=== PATIENT | female | born 1955 | race Caucasian/White ===

== ENCOUNTER 2017-08-24 16:59 | Emergency (ER) | payer SELFPAY ==
[~2017-08-24] VITALS: Ht 147.3 cm; Wt 91.0 kg
[~2017-08-24 16:59] MED LIST: ERYT500 PO; GUAI100S6 PO; Z.0.NO CURRENT MEDS
[2017-08-24 17:02] VITALS: BP 159/91; PULSE 87; RESP 18; TEMP 99.1; O2SAT 98
--- NOTE | 2017-08-24 19:56 | PD ---
HPI Chief Complaint: Back/ Neck Pain or Injury Time Seen by Provider: 18:15 Travel History International Travel<30 days: No Contact w/Intl Traveler<30days: No Traveled to known affect area: No History of Present Illness HPI 61-year-old female complains of neck pain, upper back pain and low back pain. Patient states that the pain started while she was driving today. Patient stated pain is muscular spasm type of pain, started at the neck area with radiation to left shoulder left arm left anterior chest wall and upper back and low back. Patient denies any injury. Patient denies any headache. Patient denies any visual change. Patient denies any shortness of breath. Patient has history of asthma and has chronic cough. Patient denies any fever chills. Patient denies abdominal pain. Patient denies any focal weakness or numbness of the extremity. Patient states that she took Naprosyn without much relief of the pain. On a scale of 1-10 the pain is a 7. PFSH Past Medical History Medical other: Yes Tubal Ligation: Yes Past Surgical History Other Surgery: Yes (states she had 12 inchs colon removed ) Social History Alcohol Use: No Tobacco Use: No Substance Use: No Allergies-Medications (Allergen,Severity, Reaction): Coded Allergies: penicillin G (Unverified Allergy, Severe, HIVES SOB, 08/24/17) Reported Meds & Prescriptions Reported Meds & Active Scripts Active Larry-Tab (Erythromycin) 500 Mg Tabec 500 Mg PO QID Robitussin Ac (Guaifenesin/Codeine Phosphate) Syrp 5-10 Ml PO Q6HPRN Reported No Current Meds (Miscellaneous Medication) Misc Review of Systems General / Constitutional: No: Fever Eyes: No: Visual changes HENT: Positive: Neck Pain, No: Headaches Cardiovascular: No: Chest Pain or Discomfort Respiratory: No: Shortness of Breath Gastrointestinal: No: Abdominal Pain Genitourinary: No: Dysuria Musculoskeletal: Positive: Pain Skin: No Rash Neurologic: No: Weakness Psychiatric: No: Depression Endocrine: No: Polydipsia Hematologic/Lymphatic: No: Easy Bruising Physical Exam Narrative GENERAL: Well-nourished, well-developed patient. SKIN: Focused skin assessment warm/dry. HEAD: Normocephalic. EYES: No scleral icterus. No injection or drainage. NECK: Supple, trachea midline. No JVD or lymphadenopathy. Mild to moderate tenderness on palpation left paraspinal area cervical spine. Mild to moderate tenderness on palpation left shoulder pad area. No shoulder joint tenderness. Full range of motion the left shoulder joint. CARDIOVASCULAR: Regular rate and rhythm without murmurs, gallops, or rubs. RESPIRATORY: Breath sounds equal bilaterally. No accessory muscle use. GASTROINTESTINAL: Abdomen soft, non-tender, nondistended. MUSCULOSKELETAL: No cyanosis, or edema. BACK: Patient has mild to moderate tenderness in palpation of thoracic lumbar area in the left side, without obvious deformity. No CVA tenderness. Negative straight leg raising. Neurologic exam normal. Data Data Last Documented VS Vital Signs Date Time Temp Pulse Resp B/P (MAP) Pulse Ox O2 Delivery O2 Flow Rate FiO2 08/24/17 17:02 99.1 87 18 159/91 (113) 98 Orders Orders Spine, Cervical - Ltd (Ap&Lat) (08/24/17 19:35) Spine, Thoracic-Ap/Lat/Sw(3vw) (08/24/17 19:35) Spine, Lumbar - Ltd (Ap & Lat) (08/24/17 19:35) Ed Discharge Order (08/24/17 20:55) [facility] Medical Decision Making Medical Screen Exam Complete: Yes Emergency Medical Condition: Yes Interpretation(s) Last Impressions Thoracic Spine X-Ray 08/24/171934 Signed Impressions: CONCLUSION: No acute findings. Mild degenerative disc disease. Lumbar Spine X-Ray 08/24/171934 Signed Impressions: CONCLUSION: Mild degenerative disc disease. No acute findings. Cervical Spine X-Ray 08/24/171934 Signed Impressions: CONCLUSION: No acute findings. Differential Diagnosis Differential diagnosis including muscle spasm, fracture, HNP. Narrative Course 61-year-old female with neck pain, upper back pain, low back pain. Nontraumatic. Diagnosis Primary Impression: Cervical strain, acute Qualified Codes: S16.1XXA - Strain of muscle, fascia and tendon at neck level , initial encounter Additional Impressions: Acute thoracic myofascial strain Qualified Codes: S29.019A - Strain of muscle and tendon of unspecified wall of thorax, initial encounter Acute lumbar myofascial strain Qualified Codes: S39.012A - Strain of muscle, fascia and tendon of lower back , initial encounter Patient Instructions: General Instructions Additional Instructions: Take medications as needed for pain. Follow-up with personal physician. Med/Other Pt SpecificInfo: Prescription(s) given Scripts Methocarbamol (Robaxin) 750 Mg Tab 750 MG PO QID for Muscle Spasm, #40 TAB 0 Refills Prov: Kye Roy MD 08/24/17 Albuterol 18 GM Inh (Ventolin Hfa 18 GM Inh) 90 Mcg/Act Aer 2 PUFF INH Q4-6H Y for SHORTNESS OF BREATH, #1 INHALER 0 Refills Prov: Kye Roy MD 08/24/17 Disposition: 01 DISCHARGE HOME Condition: Stable Kye Roy MD Aug 24, 2017 19:56
--- NOTE | 2017-08-24 20:12 | RADRPT ---
EXAM DATE: 08/24/2017 8:08 PM EDT AGE/SEX: 61 years / Female INDICATIONS: Left sided neck pain. No known trauma. CLINICAL DATA: This is the patient's initial encounter. Patient reports that signs and symptoms have been present for 1 day and indicates a pain score of 10/10. MEDICAL/SURGICAL HISTORY: None. Tubal ligation. Colon resection. COMPARISON: No prior exams available for comparison. FINDINGS: The vertebral bodies are in normal alignment without evidence of compression deformity Bone density is normal for age. Soft tissues are grossly intact. CONCLUSION: No acute findings. Electronically signed by: Leland Hannon MD 08/24/2017 8:10 PM EDT
--- NOTE | 2017-08-24 20:38 | RADRPT ---
EXAM DATE: 08/24/2017 8:13 PM EDT AGE/SEX: 61 years / Female INDICATIONS: Left sided upper back pain. No known trauma. CLINICAL DATA: This is the patient's initial encounter. Patient reports that signs and symptoms have been present for 1 day and indicates a pain score of 10/10. MEDICAL/SURGICAL HISTORY: None. Tubal ligation. Colon resection. COMPARISON: No prior exams available for comparison. FINDINGS: The vertebral bodies are in normal alignment without evidence of compression deformity Bone density is normal for age. Soft tissues are grossly intact. CONCLUSION: No acute findings. Mild degenerative disc disease. Electronically signed by: Leland Hannon MD 08/24/2017 8:37 PM EDT
--- NOTE | 2017-08-24 20:39 | RADRPT ---
EXAM DATE: 08/24/2017 8:11 PM EDT AGE/SEX: 61 years / Female INDICATIONS: Left sided back pain. No known trauma. CLINICAL DATA: This is the patient's initial encounter. Patient reports that signs and symptoms have been present for 1 day and indicates a pain score of 10/10. MEDICAL/SURGICAL HISTORY: None. Tubal ligation. Colon resection. COMPARISON: No prior exams available for comparison. FINDINGS: The vertebral bodies are in normal alignment without evidence of compression deformity Bone density is normal for age. Soft tissues are grossly intact. CONCLUSION: Mild degenerative disc disease. No acute findings. Electronically signed by: Leland Hannon MD 08/24/2017 8:37 PM EDT
[2017-08-24] MEDS ORDERED: ROBA750T PO (20:56)
[2017-08-24] MEDS ORDERED: VENTAER INH (20:56)
== END 2017-08-24 21:19 | disposition home or self-care (01) ==
LOC: NEPD 16:59
DX: S16.1XXA Strain of muscle, fascia and tendon at neck level, initial encounter (principal); S29.019A Strain of muscle and tendon of unspecified wall of thorax, initial encounter; S39.012A Strain of muscle, fascia and tendon of lower back, initial encounter; Z79.899 Other long term (current) drug therapy; Z88.0 Allergy status to penicillin; X58.XXXA Exposure to other specified factors, initial encounter
CPT/HCPCS: 72040; 72072; 72100; 99283